=== PATIENT | male | born 1990 | race Caucasian/White ===

== ENCOUNTER 2018-12-02 16:20 | Inpatient (IN) | payer MEDICAID ==
[~2018-12-02] VITALS: Ht 175.3 cm; Wt 74.4 kg
[~2018-12-02 16:20] MED LIST: PALI234D IM
[2018-12-02 18:04] VITALS: BP 114/66
[2018-12-02] MEDS ORDERED: LORazepam 2 MG TABLET PO PRN (18:15)
[2018-12-02] MEDS ORDERED: ZOLPIDEM TARTRATE 10 MG TABLET PO PRN (18:15)
[2018-12-02] MEDS ORDERED: HALOPERIDOL 5 MG TABLET PO PRN (18:15)
[2018-12-02 19:10] VITALS: BP 134/84
[2018-12-02] MEDS ORDERED: GuaiFENesin/D-METHORPHAN [SUGAR-FREE] 200-20MG/10 ML SYRUP UDCUP PO PRN (20:30)
[2018-12-02] MEDS ORDERED: MAG HYDROX/AL HYDROX/SIMETH ES 30 ML SUSPENSION UDCUP PO PRN (20:30)
[2018-12-02] MEDS ORDERED: PETROLATUM,WHITE 71 GM JELLY TP PRN (20:30)
[2018-12-02] MEDS ORDERED: ACETAMINOPHEN 325 MG TABLET PO PRN (20:30)
[2018-12-02] MEDS ORDERED: MAGNESIUM HYDROXIDE SUSPENSION 30 ML UDCUP PO PRN (20:30)
[2018-12-02] MEDS ORDERED: NICOTINE 14 MG/24 HOUR PATCH TD PRN (20:30)
[2018-12-02] MEDS ORDERED: IBUPROFEN 400 MG TABLET PO PRN (20:30)
[2018-12-02] MEDS ORDERED: ONDANSETRON HCL 4 MG TABLET PO PRN (20:30)
[2018-12-02] MEDS ORDERED: DOCUSATE SODIUM 100 MG CAPSULE PO PRN (20:30)
[2018-12-02] MEDS ORDERED: CloNIDine HCL 0.1 MG TABLET PO PRN (20:30)
[2018-12-02] MEDS ORDERED: LOPERAMIDE HCL 2 MG CAPSULE PO PRN (20:30)
[2018-12-02] MEDS ORDERED: ALBUTEROL SULFATE HFA 90 MCG/PUFF 8 GM INHALER IH PRN (20:30)
[2018-12-03 03:34] VITALS: BP 116/75
[2018-12-03 08:15] VITALS: BP 116/67
[2018-12-03 08:32] LABS: BASOPHILS % (AUTO) 0.5 % (0.0-2.0); EOSINOPHILS % (AUTO) 2.2 % (1.0-6.0); HEMOGLOBIN 13.2 g/dL (13.5-17.5); LYMPHOCYTES # (AUTO) 1.4 K/uL (1.0-4.8); LYMPHOCYTES % (AUTO) 39.4 % (22.0-44.0); MEAN CORPUSCULAR HEMOGLOBIN 31.4 pg (26.0-34.0); MEAN CORPUSCULAR HGB CONC 33.9 G/dL (31.0-37.0); MEAN CORPUSCULAR VOLUME 93 fL (80-100); MONOCYTES # (AUTO) 0.3 K/uL (0.1-1.0); MONOCYTES % (AUTO) 9.4 % (2.0-9.0); NEUTROPHILS # (AUTO) 1.7 K/uL (1.8-7.7); NEUTROPHILS % (AUTO) 48.5 % (40.0-70.0); PLATELET COUNT (AUTO) 224 K/uL (150-450); RED BLOOD CELL COUNT(AUTO) 4.21 MIL/uL (4.50-5.90); RED CELL DISTRIBUTION WIDTH 13.2 % (11.5-14.5)
[2018-12-03 08:48] LABS: HEMOGLOBIN A1C 5.2 % (4.5-6.2)
[2018-12-03 09:15] LABS: ALANINE AMINOTRANSFERASE 20 U/L (12-78); ALBUMIN 3.7 g/dL (3.4-5.0); ALKALINE PHOSPHATASE 57 U/L (46-116); ANION GAP 7 mmol/L (8-16); ASPARTATE AMINOTRANSFERASE 18 U/L (15-37); BILIRUBIN,TOTAL 0.4 mg/dL (0.1-1.0); CARBON DIOXIDE 29 mmol/L (22-29); CHLORIDE 106 mmol/L (98-107); CHOL/HDL RATIO 1.9 (4.2-7.3); CHOLESTEROL 95 mg/dL (131-200); CREATININE 0.88 mg/dL (0.60-1.30); FREE T4 (FREE THYROXINE) 0.99 ng/dL (0.76-1.46); GLOMERULAR FILTR. RATE CALC > 60 mL/min (>60); GLUCOSE,RANDOM 90 mg/dL (70-110); HDL CHOLESTEROL 49 mg/dL (40-60); LDL CHOL (CALC.) 43 mg/dL (0-130); POTASSIUM 4.4 mmol/L (3.5-5.1); SODIUM SERUM 142 mmol/L (136-145); THYROID STIMULATING HORMONE 0.66 uIU/mL (0.36-3.74); TOTAL PROTEIN, SERUM 6.8 g/dL (6.4-8.2); TRIGLYCERIDES 17 mg/dL (15-150); UREA NITROGEN, BLOOD 21 mg/dL (7-18)
[2018-12-03 16:00] VITALS: BP 132/81
[2018-12-04 06:57] VITALS: BP 115/72
[2018-12-04] MEDS: ARIPiprazole 2 MG TABLET PO SCH (08:34)
[2018-12-04] MEDS: FLUoxetine HCL 20 MG CAPSULE PO SCH (08:35)
[2018-12-04 08:51] VITALS: BP 127/72
[2018-12-04 16:10] VITALS: BP 121/79
[2018-12-05 06:39] VITALS: BP 120/62
[2018-12-05] MEDS: ARIPiprazole 2 MG TABLET PO SCH (08:19)
[2018-12-05] MEDS: FLUoxetine HCL 20 MG CAPSULE PO SCH (08:20)
[2018-12-05 08:28] VITALS: BP 116/75
[2018-12-05] MEDS ORDERED: ARIP2 PO (12:25)
[2018-12-05] MEDS ORDERED: FLUO-191 PO (12:27)
== END 2018-12-05 13:30 | disposition home or self-care (01) | DRG 750 ==
LOC: B2S 18:24 → B3A 19:18
PROVIDERS: ADMIT Psychiatry & Neurology Child & Adolescent Psychiatry; ATTEND Psychiatry & Neurology Child & Adolescent Psychiatry
DX: F25.1 Schizoaffective disorder, depressive type (principal); R45.851 Suicidal ideations; F99 Mental disorder, not otherwise specified; F41.9 Anxiety disorder, unspecified; F17.200 Nicotine dependence, unspecified, uncomplicated; D72.819 Decreased white blood cell count, unspecified; D64.9 Anemia, unspecified; K59.00 Constipation, unspecified
CPT/HCPCS: 83036; 84439; 84443